=== PATIENT | female | born 1980 | race Caucasian/White ===

== ENCOUNTER 2017-03-19 22:52 | Inpatient (IN) | payer BC ==
[2017-03-20] MEDS ORDERED: Carboprost Tromethamine 250 MCG/1 ML Amp IM PRN (01:03)
[2017-03-20] MEDS ORDERED: Nalbuphine 10 MG/1 ML Vial IVPUSH PRN (01:03)
[2017-03-20] MEDS ORDERED: Lidocaine 1% 50 ML MDV INJECT PRN (01:03)
[2017-03-20] MEDS ORDERED: Water For Irrigation,Sterile 1,000 ML Container IRR PRN (01:03)
[2017-03-20] MEDS ORDERED: Methylergonovine 0.2 MG/1 ML Amp IM PRN (01:03)
[2017-03-20] MEDS ORDERED: Sodium Chloride 0.9% 2.5 ML Syringe FLUSH PRN (01:03)
[2017-03-20] MEDS ORDERED: Misoprostol 200 MCG Tab PO PRN (01:03)
[2017-03-20] MEDS ORDERED: Butorphanol 1 MG/ML SDV IVPUSH PRN (01:03)
[2017-03-20] MEDS ORDERED: Sodium Chloride 0.9% 10 ML Syringe FLUSH PRN (01:03)
[2017-03-20] MEDS ORDERED: Oxytocin/Lactated Ringers 30 UNIT/500 ML BAG IV SCH (01:15)
[2017-03-20] MEDS: Lactated Ringers 1,000 ML IV SCH ×3 (01:24→02:38)
[2017-03-20] MEDS ORDERED: Ropivacaine 0.2% 2 MG/ML 20 ML SDV ONE (01:54)
--- NOTE | 2017-03-20 02:31 | PCM.PREANE ---
Preanesthetic Assessment - Anesthesia/Transfusion/Family Hx Anesthesia History: Prior Anesthesia Reaction (nausea) Type of Anesthesia Reaction: Excessive Nausea/Vomiting (for 3 days- needs scopalomine patch) Family History of Anesthesia Reaction: No - Review of Systems Other: Reports: None - Physical Assessment Height: 5 ft 6 in Weight: 101.605 kg ASA Class: 2 Mental Status: Alert & Oriented x3 Airway Class: Mallampati = 1 Dentition: Reports: Normal Dentition Thyro-Mental Finger Breadths: 3 Mouth Opening Finger Breadths: 3 ROM/Head Extension: Full - Lab Values: Laboratory Last Values WBC 13.31 K/uL (4.0-11.0) H 03/20/17 01:24 RBC 4.33 M/uL (4.30-5.90) 03/20/17 01:24 Hgb 13.2 g/dL (12.0-16.0) 03/20/17 01:24 Hct 39.1 % (36.0-46.0) 03/20/17 01:24 MCV 90.3 fL (80.0-98.0) 03/20/17 01:24 MCH 30.5 pg (27.0-32.0) 03/20/17 01:24 MCHC 33.8 g/dL (31.0-37.0) 03/20/17 01:24 RDW Std Deviation 46.2 fl (28.0-62.0) 03/20/17 01:24 RDW Coeff of Percy 14 % (11.0-15.0) 03/20/17 01:24 Plt Count 136 K/uL (150-400) L 03/20/17 01:24 MPV 11.80 fL (7.40-12.00) 03/20/17 01:24 Nucleated RBC % 0.0 /100WBC 03/20/17 01:24 Nucleated RBCs # 0 K/uL 03/20/17 01:24 Blood Type A POSITIVE 03/20/17 01:24 Antibody Screen NEGATIVE 03/20/17 01:24 - Allergies Allergies/Adverse Reactions: Allergies Allergy/AdvReac Type Severity Reaction Status Date / Time No Known Allergies Allergy Verified 06/26/15 04:03 - Blood Blood Available: Yes Product(s) Available: PRBC - Acknowledgements Anesthesia Type Planned: Epidural Pt an Appropriate Candidate for the Planned Anesthesia: Yes Alternatives and Risks of Anesthesia Discussed w Pt/Guardian: Yes Pt/Guardian Understands and Agrees with Anesthesia Plan: Yes PreAnesthesia Questionnaire HEENT History: Reports: Impaired Vision CARBONATION TESTER History: Reports: - Infectious Disease History Infectious Disease History: Reports: Chicken Pox - Past Surgical History HEENT Surgical History: Reports: Oral Surgery GI Surgical History: Reports: Hernia Repair/Other Other GI Surgeries/Procedures: Inguinal hernia repair Female Surgical History: Reports: Breast Reduction Musculoskeletal Surgical History: Reports: Arthroscopic Knee (ACL) Other Musculoskeletal Surgeries/Procedures:: Left ACL repair-knee surgery, ACL right knee - SUBSTANCE USE Smoking Status *Q: Never Smoker Recreational Drug Use History: No - CURRENT (IN HOUSE) MEDS Current Meds: Current Medications Butorphanol Tartrate (Stadol) 1 mg IVPUSH Q1H PRN PRN Reason: Pain Carboprost Tromethamine (Hemabate Ds) 250 mcg IM ASDIRECTED PRN PRN Reason: Post Hemorrhage Lactated Ringer's (Ringers, Lactated) 1,000 mls @ 150 mls/hr IV ASDIRECTED ISHMAEL Last Admin: 03/20/17 02:10 Dose: 999 mls/hr Lidocaine HCl (Xylocaine 1%) 50 ml INJECT .ONCE PRN PRN Reason: Laceration repair Methylergonovine Maleate (Methergine) 0.2 mg IM ASDIRECTED PRN PRN Reason: Post Hemorrhage Misoprostol (Cytotec) 200 mcg PO .ONCE PRN PRN Reason: Post Hemorrhage Nalbuphine HCl (Nubain) 10 mg IVPUSH Q1H PRN PRN Reason: Pain (severe 7-10) Stop: 03/20/17 03:04 Sodium Chloride (Saline Flush) 10 ml FLUSH ASDIRECTED PRN PRN Reason: Keep Vein Open Sodium Chloride (Saline Flush) 2.5 ml FLUSH ASDIRECTED PRN PRN Reason: Keep Vein Open Sterile Water (Sterile Water For Irrigation) 1,000 ml IRR ASDIRECTED PRN PRN Reason: delivery Discontinued Medications Oxytocin/Lactated Ringer's (Pitocin In Lr 30 Units/500 Ml) 30 unit in 500 mls @ 999 mls/hr IV TITRATE ISHMAEL; 999 MUNITS/MIN PRN Reason: Protocol Stop: 03/20/17 01:46 Ropivacaine/Fentanyl/NS (Fentanyl 2 Mcg-Ropiv 0.2%-Ns) Confirm Administered Dose 100 mls @ as directed .ROUTE .[facility] Stop: 03/20/17 01:55 Ropivacaine (Naropin 0.2%) Confirm Administered Dose 20 ml .ROUTE .[facility] Stop: 03/20/17 01:55
[2017-03-20] MEDS ORDERED: Lanolin 100% Cream 7 GM Tube TOP PRN (04:11)
[2017-03-20] MEDS ORDERED: Bisacodyl 10 MG Supp RECTAL PRN (04:11)
[2017-03-20] MEDS ORDERED: Docusate Sodium 100 MG Cap PO PRN (04:11)
[2017-03-20] MEDS ORDERED: oxyCODONE 5 MG Tab PO PRN (04:11)
[2017-03-20] MEDS ORDERED: Benzocaine/Menthol 20%-0.5% Spray 78 GM Cannister TOP PRN (04:11)
[2017-03-20] MEDS ORDERED: Witch Hazel Medicated Pads 40/Jar TOP PRN (04:11)
--- NOTE | 2017-03-20 04:57 | OR ---
SURGEON: Nancy Gonzáles M.D. DATE OF PROCEDURE: 03/20/2017 PREOPERATIVE DIAGNOSIS: 37 and 3/7th weeks intrauterine , active spontaneous labor. POSTOPERATIVE DIAGNOSIS: 37 and 3/7th weeks intrauterine , active spontaneous labor. PROCEDURE: Term spontaneous vaginal delivery. ANESTHESIA: Epidural. ESTIMATED BLOOD LOSS: Less than 300 mL. FINDINGS: Live born male, score 7 and 9, weighing 3430 g. Placenta spontaneous, Schultze intact, with 3 vessels. BRIEF HISTORY: This is a 36-year-old female, -0-0-2. She presents at 37 and 3/7th weeks gestation in active spontaneous labor. She is group B strep negative. She was observed over several hours. She changed from 3-4 cm to 5 cm. At this time. She was admitted for labor management. She received an epidural for pain control and she progressed to complete with spontaneous rupture of membranes. DESCRIPTION OF PROCEDURE: With the patient in the dorsal lithotomy position, under adequate epidural analgesia, the patient pushed over a 20-minute time period to a 5+ station, at which time the head was delivered spontaneously and atraumatically over the perineum with support with subsequent delivery of the 's shoulders and body without any difficulty. The was bulb suctioned by nose and mouth. Cord was clamped x2 and cut and the infant was handed to the mother in the presence of the nurse attending delivery. The was a liveborn male, score 7 and 9, weighing 3430 g. Cord blood was collected for cord ABGs as well as routine cord blood sampling. Pitocin was initiated after delivery of the infant to assist with delivery of the placenta, which was delivered spontaneously, Schultze intact with 3 vessels. Upon inspection the pelvis and perineum, there were no periurethral, vaginal sidewall, cervical, rectal, or perineal lacerations. EBL is less than 300 mL. There were no known complications. The infant and mother remained in LDRP in good condition. AYUSH / GABRIELA /[id number]
--- NOTE | 2017-03-20 06:26 | PCM48HPAN ---
Post Anesthesia Note - EVALUATION WITHIN 48HRS OF ANESTHETIC Vital Signs in Normal Range: Yes Patient Participated in Evaluation: Yes Respiratory Function Stable: Yes Airway Patent: Yes Cardiovascular Function Stable: Yes Hydration Status Stable: Yes Pain Control Satisfactory: Yes Nausea and Vomiting Control Satisfactory: Yes Mental Status Recovered: Yes
[2017-03-20] MEDS: Acetaminophen 500 MG Tab PO PRN ×2 (11:56→22:32)
[2017-03-20] MEDS: Ibuprofen 800 MG Tab PO PRN ×2 (15:07→22:20)
[2017-03-21] MEDS: Ibuprofen 800 MG Tab PO PRN ×2 (04:05→09:46)
[2017-03-21 07:50] VITALS: BP 118/80
[2017-03-21] MEDS: Acetaminophen 500 MG Tab PO PRN (07:57)
--- NOTE | 2017-03-21 09:29 | PCM.PNPP ---
- General Info Date of Service: 03/21/17 Functional Status: Reports: pain controlled, tolerating diet, ambulating, urinating - Review of Systems General: Reports: No Symptoms HEENT: Reports: no symptoms Pulmonary: Reports: no symptoms Cardiovascular: Reports: No Symptoms Gastrointestinal: Reports: No symptoms Genitourinary: Reports: no symptoms Musculoskeletal: Reports: no symptoms Skin: Reports: no symptoms Neurological: Reports: No Symptoms Psychiatric: Reports: no symptoms - Patient Data Vital Signs - most recent: Last Vital Signs Temp 36.7 C 03/21/17 07:49 Pulse 95 03/21/17 07:49 Resp 18 03/21/17 07:49 BP 118/80 03/21/17 07:49 Pulse Ox 96 03/21/17 07:49 Weight - most recent: 101.605 kg Lab Results - last 24 hrs: Laboratory Results - last 24 hr 03/21/17 Range/Units 04:40 Hgb 12.4 (12.0-16.0) g/dL Hct 37.4 (36.0-46.0) % Med Orders - Current: Current Medications Acetaminophen (Tylenol Extra Strength) 1,000 mg PO Q4H PRN PRN Reason: Pain Last Admin: 03/21/17 07:57 Dose: 1,000 mg Benzocaine/Menthol (Dermoplast Pain Relief 20%-0.5% [place]) 78 gm TOP ASDIRECTED PRN PRN Reason: Perineal Comfort Measure Bisacodyl (Dulcolax) 10 mg RECTAL .ONCE PRN PRN Reason: Constipation Docusate Sodium (Colace) 100 mg PO BID PRN PRN Reason: Constipation Emollient Ointment (Lansinoh Hpa) 0 gm TOP ASDIRECTED PRN PRN Reason: Sore Nipples Ibuprofen (Motrin) 800 mg PO Q6H PRN PRN Reason: Pain Last Admin: 03/21/17 04:05 Dose: 800 mg Oxycodone HCl (Oxycodone) 5 mg PO Q2H PRN PRN Reason: Pain Witch Nette (Tucks) 1 pad TOP ASDIRECTED PRN PRN Reason: comfort care Discontinued Medications Butorphanol Tartrate (Stadol) 1 mg IVPUSH Q1H PRN PRN Reason: Pain Carboprost Tromethamine (Hemabate Ds) 250 mcg IM ASDIRECTED PRN PRN Reason: Post Hemorrhage Lactated Ringer's (Ringers, Lactated) 1,000 mls @ 150 mls/hr IV ASDIRECTED ISHMAEL Last Admin: 03/20/17 02:38 Dose: 150 mls/hr Oxytocin/Lactated Ringer's (Pitocin In Lr 30 Units/500 Ml) 30 unit in 500 mls @ 999 mls/hr IV TITRATE ISHMAEL; 999 MUNITS/MIN PRN Reason: Protocol Stop: 03/20/17 01:46 Ropivacaine/Fentanyl/NS (Fentanyl 2 Mcg-Ropiv 0.2%-Ns) Confirm Administered Dose 100 mls @ as directed .ROUTE .[employer] Stop: 03/20/17 01:55 Lidocaine HCl (Xylocaine 1%) 50 ml INJECT .ONCE PRN PRN Reason: Laceration repair Methylergonovine Maleate (Methergine) 0.2 mg IM ASDIRECTED PRN PRN Reason: Post Hemorrhage Misoprostol (Cytotec) 200 mcg PO .ONCE PRN PRN Reason: Post Hemorrhage Nalbuphine HCl (Nubain) 10 mg IVPUSH Q1H PRN PRN Reason: Pain (severe 7-10) Stop: 03/20/17 03:04 Ropivacaine (Naropin 0.2%) Confirm Administered Dose 20 ml .ROUTE .[employer] Stop: 03/20/17 01:55 Sodium Chloride (Saline Flush) 10 ml FLUSH ASDIRECTED PRN PRN Reason: Keep Vein Open Sodium Chloride (Saline Flush) 2.5 ml FLUSH ASDIRECTED PRN PRN Reason: Keep Vein Open Sterile Water (Sterile Water For Irrigation) 1,000 ml IRR ASDIRECTED PRN PRN Reason: delivery - Interaction Infant Disposition, : [place] in Room with Family Interaction: Holding Feeding: Bottle Fed Support Person: - Recovery Exam Fundal Tone: Firm Fundal Level: 1 Fingerbreadths Below Umbilicus Fundal Placement: Midline Lochia Amount: Scant Lochia Color: Rubra/Red Perineum Description: Intact, Minimal Bruising/Swelling Episiotomy/Laceration: None Bladder Status: Voiding Urinary Elimination: Voided - Exam General: alert, oriented HEENT: Pupils equal Neck: supple Abdomen: soft, no tenderness, no distension Extremities: no edema Skin: warm, dry, intact Neurological: no new focal deficit Psy/Mental Status: alert, normal affect, normal mood - Problem List & Annotations (1) Vaginal delivery SNOMED Code(s): 644746690 Code(s): O80 - ENCOUNTER FOR FULL-TERM UNCOMPLICATED DELIVERY Status: Acute Current Visit: No - Problem List Review Problem List Initiated/Reviewed/Updated: Yes - Assessment Assessment:: PPD#1 after , stable, minimal lochia, single elevated temperature after delivery yesterday afebrile since that time without complaints. She would like to go home today. Bottle feeding infant. - Plan Plan:: Discharge precautions reviewed. Dismiss to home later today.
== END 2017-03-21 13:35 | disposition home or self-care (01) | DRG 560 ==
LOC: MW.OBCHECK 22:52 → MW.OB 22:54 → MW.OBCHECK 03-20 01:58 → OBSVTOIN 03-20 03:45 → MW.OB 03-20 03:45
PROVIDERS: ADMIT Obstetrics & Gynecology; ATTEND Obstetrics & Gynecology
PROC: 10E0XZZ Delivery of Products of Conception, External Approach (ICD-10-PCS; principal; 2017-03-20)
DX: O80 Encounter for full-term uncomplicated delivery (principal); Z3A.37 37 weeks gestation of pregnancy; Z37.0 Single live birth
CPT/HCPCS: 01967; 36415; 59025; 85014; 85018; 85027; 86850; 86900; 86901; A9270-GY; J2795; J7120

== ENCOUNTER 2025-09-11 10:42 | Day surgery (SDC) | payer BC ==
[~2025-09-11 10:42] MED LIST: Sodium Chloride 0.9% 10 ML Syringe FLUSH PRN; Sodium Chloride 0.9% 2.5 ML Syringe FLUSH PRN
[2025-09-11] MEDS: Lactated Ringers 1,000 ML IV SCH (11:14)
[2025-09-11] MEDS ORDERED: propofoL 500 MG/50 ML 50 ML ONE (13:16)
[2025-09-11 16:23] VITALS: BP 136/82; PULSE 54
== END 2025-09-11 14:26 | disposition home or self-care (01) ==
LOC: MW.SDS 10:42
PROVIDERS: ATTEND Surgery
DX: Z12.11 Encounter for screening for malignant neoplasm of colon (principal); K63.5 Polyp of colon; K57.30 Diverticulosis of large intestine without perforation or abscess without bleeding; I10 Essential (primary) hypertension; E78.00 Pure hypercholesterolemia, unspecified; Z79.899 Other long term (current) drug therapy
CPT/HCPCS: 45380; 81025; J2704; J7120